=== PATIENT | male | born 1965 | race Caucasian/White ===

== ENCOUNTER 2025-01-02 02:39 | Day surgery (SDC) | payer OTHER ==
[~2025-01-02] VITALS: Ht 190.5 cm; Wt 72.7 kg
[2025-01-02] VITALS (225 sets, daily range): BP systolic 54–151; BP diastolic 36–128
[~2025-01-02 02:39] MED LIST: SODIUM CHLORIDE 0.9% 1,000 ML IV PRN
[2025-01-02] MEDS ORDERED: cloNIDine HCL 0.1 MG/TAB PO PRN (07:30)
[2025-01-02] MEDS ORDERED: diazePAM 5 MG/TAB PO PRN ×2 (07:30→08:30)
[2025-01-02] MEDS ORDERED: PANTOPRAZOLE SODIUM Sesquihydr 40 MG/TAB PO PRN (07:30)
[2025-01-02] MEDS ORDERED: LACTATED RINGER'S 1,000 ML IV PRN ×2 (07:30→08:40)
[2025-01-02] MEDS ORDERED: FAMOTIDINE 20 MG/TAB PO PRN (07:30)
[2025-01-02] MEDS ORDERED: SCOPOLAMINE 1.5 MG DIS TD PRN (07:30)
[2025-01-02] MEDS ORDERED: CYANOCOBALAMIN 500 MCG/TAB ( B12) PO PRN (07:30)
[2025-01-02] MEDS ORDERED: ALBUTEROL SULFATE 2.5 MG VIAL IN PRN (07:30)
[2025-01-02] MEDS ORDERED: ASCORBIC ACID 4,000 MG in SODIUM CHLORIDE 0.9% 1,000 ML IV SCH (08:00)
[2025-01-02] MEDS ORDERED: DiphenhydrAMINE HCL 50 MG/ML SDV IV PRN (08:40)
[2025-01-02] MEDS ORDERED: OCTREOTIDE ACETATE 100 MCG/VIAL SDV SC PRN (08:40)
[2025-01-02] MEDS ORDERED: PROPOFOL 100 ML IV PRN (08:40)
[2025-01-02] MEDS ORDERED: MIDAZOLAM HCL 2 MG/2 ML VIAL IV PRN ×3 (08:40→15:30)
[2025-01-02] MEDS ORDERED: STERILE WATER FOR IRRIGATION 1,000 ML BTL IR PRN (08:40)
[2025-01-02] MEDS ORDERED: THIAMINE HCL 100 MG/ML 2ML VIAL IV PRN (08:40)
[2025-01-02] MEDS ORDERED: cloNIDine HYDROCHLORIDE 100 MCG/ML 10 ML INJ IV PRN (08:40)
[2025-01-02] MEDS ORDERED: diazePAM 5 MG/TAB VT PRN (08:40)
[2025-01-02] MEDS ORDERED: ONDANSETRON HCl 4 MG/2 ML SDV IV PRN ×3 (08:40→19:00)
[2025-01-02] MEDS ORDERED: MAGNESIUM SULFATE HEPTAHYDRATE 100 ML IV PRN (08:40)
[2025-01-02] MEDS ORDERED: PROPOFOL 10 MG/ML 100ML VIAL IV PRN (08:40)
[2025-01-02] MEDS ORDERED: SODIUM CHLORIDE 0.9% 1,000 ML IV PRN ×2 (08:40→15:25)
[2025-01-02] MEDS ORDERED: cloNIDine HCL 0.1 MG/TAB VT PRN (08:40)
[2025-01-02] MEDS ORDERED: LIDOCAINE HCL 1% (10MG/ML) 100 MG/10 ML MDV IV PRN (08:40)
[2025-01-02] MEDS ORDERED: SUCCINYLCHOLINE CHLORIDE 20 MG/ML 10ML VIAL IV PRN (08:40)
[2025-01-02] MEDS ORDERED: LIDOCAINE HCL 1% (10MG/ML) 100 MG/10 ML MDV VT PRN ×2 (08:40)
[2025-01-02] MEDS ORDERED: NALTREXONE HCL 50 MG/TAB VT PRN (08:40)
[2025-01-02] MEDS ORDERED: ROCURONIUM BROMIDE 10 MG/ML 5 ML VIAL IV PRN (08:40)
[2025-01-02 08:53] LABS: BASO% 0.6 % (0-3); EOS% 5.5 % (0-8); HEMATOCRIT 37.4 % (39.0-50.0); HEMOGLOBIN 12.2 g/dl (14.0-18.0); IMMATURE GRANULOCYTES 0.1 % (0.0-5.0); LYMPH% 46.7 % (15-41); MEAN CELL VOLUME 90.8 fL CALC (80.0-100.0); MEAN CORPUSCULAR HGB 29.6 pG CALC (26.0-32.0); MEAN CORPUSCULAR HGB CONC 32.6 g/dL CAL (32.0-36.0); MONO% 11.9 % (2-13); NEUT# 3.15 thou/uL (1.82-7.42); NEUT% 35.2 % (42-76); RED BLOOD COUNT 4.12 mill/uL (4.70-6.10); RED CELL DISTRI WIDTH 13.2 % (11.5-15.5)
[2025-01-02 09:04] LABS: ALBUMIN 4.1 g/dL (3.2-5.0); BILIRUBIN, TOTAL 0.8 mg/dL (0.2-1.3); POTASSIUM 4.1 mmol/l (3.5-5.1); TOTAL PROTEIN 7.4 g/dL (6.3-8.2)
[2025-01-02] MEDS ORDERED: LOSARTAN/HCT1 TA1 PO (09:24)
[2025-01-02] MEDS ORDERED: ADDERALL20 MG PO (09:25)
[2025-01-02] MEDS ORDERED: POTASSIUM CHLORIDE 10 MEQ/50 ML BAG IV PRN (10:25)
[2025-01-02] MEDS ORDERED: DEXMEDETOMIDINE HCL IN SODIUM 100 ML IV SCH (11:55)
[2025-01-02] MEDS ORDERED: ALBUMIN 25% (12.5GM/50 ML) VIAL IV SCH (13:00)
[2025-01-02] MEDS ORDERED: clonazePAM 1 MG/TAB PO PRN (15:25)
[2025-01-02] MEDS ORDERED: NALTREXONE50 MG PO (16:07)
[2025-01-02] MEDS ORDERED: KLONOPIN2 MG PO (16:08)
[2025-01-02] MEDS ORDERED: CLONIDINE0.1 MG PO (16:08)
[2025-01-02] MEDS ORDERED: ACETAMINOPHEN 1,000 MG/100 ML VIAL IV SCH (17:00)
[2025-01-02] MEDS ORDERED: KETOROLAC TROMETHAMINE 30 MG/ML SDV IV SCH (17:00)
[2025-01-02] MEDS ORDERED: LIDOCAINE HCL 1% (10MG/ML) 100 MG/10 ML MDV IV SCH (17:00)
[2025-01-02] MEDS ORDERED: ACETAMINOPHEN 1,000 MG/100 ML VIAL IV PRN (19:00)
[2025-01-02] MEDS ORDERED: KETOROLAC TROMETHAMINE 30 MG/ML SDV IV PRN (19:00)
[2025-01-02] MEDS ORDERED: ACETAMINOPHEN 500 MG TAB PO PRN (19:00)
[2025-01-02] MEDS ORDERED: PROMETHAZINE HCL 12.5 MG in SODIUM CHLORIDE 0.9% 50 ML IV PRN (19:00)
[2025-01-02] MEDS ORDERED: HALOPERIDOL LACTATE 5 MG/ML SDV IV PRN ×2 (19:00→21:00)
[2025-01-02] MEDS ORDERED: PROMETHAZINE HCL 25 MG in SODIUM CHLORIDE 0.9% 50 ML IV PRN (19:00)
[2025-01-02] MEDS ORDERED: PATIENT' OWN MED CONTROLLED 1 EA DOSE IV PRN (21:00)
[2025-01-02] MEDS ORDERED: cloNIDine HCL 0.1 MG/TAB PO SCH (23:00)
[2025-01-03] MEDS ORDERED: cloNIDine HCL 0.1 MG/TAB PO PRN (04:00)
[2025-01-03] MEDS ORDERED: clonazePAM 1 MG/TAB PO PRN ×2 (04:00→08:00)
[2025-01-03] MEDS ORDERED: NALTREXONE HCL 50 MG/TAB PO SCH (04:00)
[2025-01-03 04:08] VITALS: BP 142/116
[2025-01-03 06:05] LABS: BASO% 0.2 % (0-3); HEMATOCRIT 38.6 % (39.0-50.0); HEMOGLOBIN 12.8 g/dl (14.0-18.0); IMMATURE GRANULOCYTES 0.2 % (0.0-5.0); LYMPH% 32.9 % (15-41); MEAN CELL VOLUME 88.1 fL CALC (80.0-100.0); MEAN CORPUSCULAR HGB 29.2 pG CALC (26.0-32.0); MEAN CORPUSCULAR HGB CONC 33.2 g/dL CAL (32.0-36.0); MONO% 3.1 % (2-13); NEUT# 5.26 thou/uL (1.82-7.42); NEUT% 63.6 % (42-76); RED BLOOD COUNT 4.38 mill/uL (4.70-6.10); RED CELL DISTRI WIDTH 12.9 % (11.5-15.5)
[2025-01-03 06:08] LABS: ALBUMIN 3.9 g/dL (3.2-5.0); CREATININE 1.3 mg/dL (0.7-1.3); MAGNESIUM 2.6 mg/dL (1.6-2.3); POTASSIUM 4.6 mmol/l (3.5-5.1)
[2025-01-03 06:10] LABS: BILIRUBIN, TOTAL 1.2 mg/dL (0.2-1.3)
[2025-01-03 07:39] VITALS: BP 146/91
[2025-01-03] MEDS ORDERED: PANTOPRAZOLE SODIUM Sesquihydr 40 MG/TAB PO SCH (08:00)
[2025-01-03] MEDS ORDERED: cloNIDine HCL 0.1 MG/TAB PO SCH (08:00)
[2025-01-03] MEDS ORDERED: ACETAMINOPHEN 325 MG/TAB PO SCH (08:00)
[2025-01-03] MEDS ORDERED: ACETAMINOPHEN 500 MG TAB PO PRN (09:00)
[2025-01-03] MEDS ORDERED: MAGNESIUM OXIDE 400 MG/TAB PO PRN (09:00)
[2025-01-03] MEDS ORDERED: Cholecalciferol 2,000 UNIT/TAB PO PRN (09:00)
== END 2025-01-03 16:47 | disposition home or self-care (01) | DRG 897 ==
LOC: ANR 02:39 → MS2 02:39 → ANR 08:00
PROVIDERS: ATTEND Anesthesiology Critical Care Medicine
DX: F11.20 Opioid dependence, uncomplicated (principal)
CPT/HCPCS: J0131; J0735; J1100; J1200; J2354; J2405; J2704; J3475; P9047